=== PATIENT | female | born 1970 | race Caucasian/White ===

== ENCOUNTER 2016-08-18 12:53 | Emergency (ER) | payer OTHER ==
[~2016-08-18] VITALS: Wt 70.5 kg
[2016-08-18] MEDS ORDERED: LORAZEPAM 2 MG INJ IV ONE (16:30)
[2016-08-18] MEDS ORDERED: METO200T4 PO (17:55)
--- NOTE | 2016-08-18 19:12 | ERD ---
ER Documentation Chief Complaint Date/Time DATE: 08/18/16 TIME: 16:15 Chief Complaint DIZZINESS AND MILD HEADACHE NO TRAUMA OR NEURO DEFICIT NOTED. HPI 45-year-old female with a history of hypertension and right carotid artery dissection in 2005 ambulatory to the ED for evaluation of uncontrolled hypertension. Over the last days she has not felt well with mild lightheadedness and noticed that her blood pressure was high. She went to urgent care in [place]. On arrival her blood pressure there was 177/121 but on recheck went down to 130/90. EKG was normal. Physician suggested that she go to the ED for further evaluation. Currently feels better. Denies any headache, visual changes or neck pain. No focal weakness or numbness. No dizziness. No chest pain or palpitation. No shortness of breath or cough. No abdominal pain, nausea vomiting. No relieving or exacerbating factors. No URI symptoms. No fevers or chills. She recently saw her physician, Dr Laws, approximately a week ago. Labs were normal but he changed her antihypertensives which do not seem to be working as well. ROS All systems reviewed and are negative except as per history of present illness. Medications Home Meds Reported Medications Metoprolol Succinate* (Toprol XL*) 200 Mg Tab.sr.24h, 200 MG PO DAILY, #30 TAB 08/18/16 Allergies Allergies: Coded Allergies: No Known Allergy (Unverified , 08/18/16) PMhx/Soc Reviewed in chart. As per HPI. History of Surgery: Yes (BREAST AUGMENTATION, LIPOSUCTION, TRACHEOSTOMY) Hx Neurological Disorder: No Hx Respiratory Disorders: No Hx Cardiac Disorders: Yes (HTN, LT CAROTID ARTERY DISECTION) Hx Psychiatric Problems: No Hx Miscellaneous Medical Probl: Yes (Ted's angina.) Hx Alcohol Use: No Hx Substance Use: No Hx Tobacco Use: No Smoking Status: Never smoker FmHx Multiple family members with hypertension. Brother recently had an aortic dissection. Mother: Breast cancer Physical Exam Vitals Vital Signs Date Time Temp Pulse Resp B/P Pulse Ox O2 Delivery O2 Flow Rate FiO2 08/18/16 17:53 98.5 71 18 148/97 98 Room Air 08/18/16 15:47 98.1 66 16 177/117 100 Room Air 08/18/16 14:44 63 20 190/102 08/18/16 12:57 98.2 72 20 197/116 98 Physical Exam Const: Alert, no acute distress. Anxious. Head: Atraumatic Eyes: Normal Conjunctiva, pupils equal reactive to light, extraocular movements are intact. No nystagmus. ENT: Normal External Ears, Nose and Mouth. Neck: Full range of motion. Carotids 2+ bilaterally without bruits. Nontender. Resp: Breath sounds are equal and clear to auscultation bilaterally Cardio: Regular rate and rhythm, no murmurs Abd: Soft, non tender, non distended. Normal bowel sounds. No rebound or guarding. No masses or abnormal pulsations. Skin: No petechiae or rashes Back: No midline or flank tenderness Ext: No cyanosis, or edema. No calf swelling or tenderness. Neur: Awake and alert. Cranial nerves II through XII are grossly intact. Motor and sensory equal bilaterally. No focal deficit observed. Psych: Patient appears anxious but not depressed. Results 24 hrs Current Medications Medications (Trade) Dose Ordered Sig/Prachi Route PRN Reason Start Time Stop Time Status Last Admin Dose Admin Lorazepam (Ativan) 1 mg ONCE ONCE IV 08/18/16 16:30 08/18/16 16:31 DC 08/18/16 16:39 Procedures/MDM DOCUMENTS REVIEWED: ED nurse, prior ED: Seen in the ED 11/18 for similar symptoms. MEDICAL DECISION MAKIN-year-old female with a history of hypertension and right carotid artery dissection in 2005 ambulatory to the ED for evaluation of uncontrolled hypertension. Patient with labile hypertension and anxiety. Blood pressure improved with anxiolytics, Ativan 1 mg. No headache. Patient just had an EKG prior to arrival which was normal and not repeated. Recent labs are normal and no indication for repeat currently. Patient was observed in the ED for over 4 hours. Multiple reexaminations were performed. She is asymptomatic. Stable for discharge with precautionary instructions and mandatory follow-up tomorrow morning with her PMD to recheck her blood pressure and potentially adjust her medications. Counseled patient and family regarding diagnostic workup, diagnosis and need for followup. Understands to return to ED if symptoms recur, worsen or any other concerns. Departure Diagnosis: Primary Impression: Poorly-controlled hypertension Additional Impression: History of carotid artery dissection Condition: Stable Patient Instructions: Hypertension, Established, Out Of Control LOVELY SEVILLA MD Aug 18, 2016 19:12
[2016-08-18 19:15] VITALS: BP 158/102; PULSE 62; RESP 18; TEMP 98.2
== END 2016-08-18 19:16 | disposition home or self-care (01) ==
LOC: E/R 12:53
DX: I10 Essential (primary) hypertension (principal); Z86.79 Personal history of other diseases of the circulatory system
CPT/HCPCS: 36415; 96374; 99284; J2060